=== PATIENT | male | born 1960 | race Caucasian/White ===

== ENCOUNTER 2021-10-18 16:55 | Outpatient (CLI) | payer SELFPAY ==
[2021-10-18 17:44] LABS: #Basophils 0.1 10x3/uL (0.0-0.2); #Monocytes 0.4 10x3/uL (0.0-1.1); #Neutrophils 6.6 10x3/uL (1.5-8.4); %Basophils 0.5 % (0.0-2.0); %Eosinophils 0.3 % (0.0-6.0); %Lymphocytes 25.6 % (18.0-47.0); %Monocytes 4.6 % (0.0-10.0); %Neutrophils 68.7 % (40.0-75.0); Hemoglobin 12.4 g/dL (13.5-17.5); Mean Corpuscular Hemoglobin 28.6 pg (27.0-33.0); Mean Corpuscular Volume 86.8 fl (81.2-95.1); Mean Platelet Volume 8.8 fl (7.4-10.4); Platelet Count 466 10x3/uL (150-450); RBC Distribution Width 13.9 % (11.5-14.5); Red Blood Cell (RBC) Count 4.33 10x6/uL (4.32-5.72); White Blood Cell (WBC) Count 9.6 10x3/uL (3.5-10.5)
[2021-10-18 17:53] LABS: Anion Gap 12 mmol/L (10-20); BUN (Urea Nitrogen) 16 mg/dL (8.4-25.7); Calc. Creatinine Clearance 0 mL/min (70-130); Calcium 9.5 mg/dL (7.8-10.44); Carbon Dioxide 29 mmol/L (23-31); Chloride 102 mmol/L (98-107); Estimated GFR 92; Glucose 104 mg/dL (80-115); Potassium 4.3 mmol/L (3.5-5.1); Sodium 139 mmol/L (136-145)
== END 2021-10-18 16:56 | disposition home or self-care (01) ==
LOC: LABBT 16:55
PROVIDERS: ATTEND Specialist
DX: Z01.818 Encounter for other preprocedural examination (principal); E11.9 Type 2 diabetes mellitus without complications; Z20.822 Contact with and (suspected) exposure to COVID-19
CPT/HCPCS: 80048; 85025; 87811; 93005; 93010

== ENCOUNTER 2021-10-18 17:15 | Inpatient (IN) | payer OTHER ==
[2021-10-19 10:23] VITALS: BMI 23.0
[2021-10-20] MEDS ORDERED: Vancomycin 1 GM/200 ML BAG ONE (10:27)
[2021-10-20] MEDS ORDERED: Acetaminophen 500 MG TAB ONE (10:27)
[2021-10-20] MEDS ORDERED: Ketorolac Tromethamine 30 MG/ML VIAL ONE (10:27)
[2021-10-20] MEDS ORDERED: Rocuronium Bromide 10 MG/ML (10ML VIAL) ONE (10:31)
[2021-10-20] MEDS ORDERED: PROPOFOL 200 MG/20 ML VIAL ONE (10:31)
[2021-10-20] MEDS ORDERED: Ondansetron PF 4 MG/2 ML Vial ONE (10:31)
[2021-10-20] MEDS ORDERED: Glycopyrrolate 0.2 MG/ML 5 ML SYRINGE ONE (10:31)
[2021-10-20] MEDS ORDERED: fentaNYL Citrate/PF 100 MCG/2 ML SYRINGE ONE ×2 (12:17→14:12)
[2021-10-20] MEDS ORDERED: Cefepime 2 GM in Sodium Chloride 0.9% 100 ML IVPB SCH (12:30)
[2021-10-20] MEDS ORDERED: Promethazine HCl 25 MG/ML VIAL IVPB PRN ×2 (13:35→13:50)
[2021-10-20] MEDS ORDERED: Promethazine HCl 25 MG/ML VIAL IM PRN ×3 (13:35→13:50)
[2021-10-20] MEDS ORDERED: Ondansetron HCl/PF 4 MG/2 ML Vial IVP PRN ×2 (13:35→13:50)
[2021-10-20] MEDS ORDERED: HYDROmorphone 0.5 MG/0.5 ML SYRINGE ONE ×2 (13:43→14:16)
[2021-10-20] MEDS ORDERED: Zolpidem Tartrate 5 MG TAB PO PRN (13:47)
[2021-10-20] MEDS ORDERED: Naloxone HCl 0.4 mg/ml Vial IV PRN (13:47)
[2021-10-20] MEDS ORDERED: fentaNYL Citrate/PF 2,000 MCG in Sodium Chloride 0.9% 60 ML IV PRN (13:47)
[2021-10-20] MEDS ORDERED: diphenhydrAMINE 50 MG/ML VIAL IVP PRN (13:47)
[2021-10-20] MEDS ORDERED: Ondansetron PF 4 MG/2 ML Vial IVP PRN (13:47)
[2021-10-20] MEDS ORDERED: diphenhydrAMINE 25 MG CAP PO PRN (13:47)
[2021-10-20] MEDS ORDERED: diphenhydrAMINE 50 MG/ML VIAL IM PRN (13:47)
[2021-10-20] MEDS ORDERED: HYDROmorphone 2 MG/ML VIAL SLOW IVP PRN (13:50)
[2021-10-20] MEDS ORDERED: Communication Order-Pharmacy FS SCH (14:00)
[2021-10-20] MEDS ORDERED: Dextrose 5% in Water 1,000 ML IV PRN (14:09)
[2021-10-20] MEDS ORDERED: Morphine 4 MG/ML VIAL SLOW IVP PRN (14:09)
[2021-10-20] MEDS ORDERED: HYDROcodone/Acetaminophen 10/325 mg Tablet PO PRN ×2 (14:09)
[2021-10-20] MEDS ORDERED: Ondansetron ODT 4 MG TAB PO PRN (14:09)
[2021-10-20] MEDS ORDERED: hydrALAZINE 20 MG/ML VIAL SLOW IVP PRN (14:09)
[2021-10-20] MEDS ORDERED: Morphine 2 MG/ML VIAL SLOW IVP PRN (14:09)
[2021-10-20] MEDS ORDERED: HumaLOG 300 UNITS/3 ML VIAL SC PRN (14:09)
[2021-10-20] MEDS ORDERED: Dextrose 50% Abboject 50 ML SYRINGE SLOW IVP PRN (14:09)
[2021-10-20] MEDS ORDERED: traMADol HCl 50 MG TAB PO PRN (14:09)
[2021-10-20] MEDS: Ketorolac Tromethamine 30 MG/ML VIAL IVP SCH (16:49)
[2021-10-20] MEDS: Sodium Chloride 0.45% 1,000 ML IV SCH (16:51)
[2021-10-20] MEDS ORDERED: Ciprofloxacin 500 MG TAB PO SCH (20:00)
[2021-10-20] MEDS: Enoxaparin Sodium 40 MG/0.4 ML SYRINGE SC SCH (20:50)
[2021-10-20] MEDS: NPH, Human Insulin Isophane 300 UNIT/3 ML VIAL SC SCH (22:34)
[2021-10-21] MEDS: Ketorolac Tromethamine 30 MG/ML VIAL IVP SCH ×5 (00:10→23:53)
[2021-10-21] MEDS: Sodium Chloride 0.45% 1,000 ML IV SCH ×3 (00:18→20:48)
[2021-10-21 05:43] LABS: #Eosinphils 0.1 thou/uL (0.0-0.7); #Lymphocytes 2.5 thou/uL (1.20-3.40); #Monocytes 0.7 thou/uL (0.11-0.59); #Neutrophils 7.1 thou/uL (1.40-6.50); %Basophils 0.4 % (0.0-1.0); %Eosinophils 0.8 % (0.0-10.0); %Lymphocytes 23.9 % (21.0-51.0); %Neutrophils 67.9 % (42.0-75.0); Mean Corpuscular HGB CONC 32.4 g/dL (32.0-36.0); Mean Corpuscular Hemoglobin 29.9 pg (27.0-31.0); Mean Corpuscular Volume 92.5 fL (78.0-98.0); Mean Platelet Volume 7.1 fL (7.4-10.4); Platelet Count 337 thou/uL (130-400); RBC Distribution Width 12.8 % (11.5-14.5); Red Blood Cell (RBC) Count 3.33 mill/uL (4.70-6.10); White Blood Cell (WBC) Count 10.4 thou/uL (4.8-10.8)
[2021-10-21 05:57] LABS: Hemoglobin A1c 7.8 % (4.0-6.0)
[2021-10-21 06:16] LABS: Anion Gap 12 mmol/L (10-20); BUN (Urea Nitrogen) 24 mg/dL (8.4-25.7); Calc. Creatinine Clearance 79 mL/min (70-130); Calcium 8.6 mg/dL (7.8-10.44); Carbon Dioxide 27 mmol/L (23-31); Chloride 101 mmol/L (98-107); Estimated GFR 88; Glucose 163 mg/dL (80-115); Potassium 4.5 mmol/L (3.5-5.1); Sodium 135 mmol/L (136-145)
[2021-10-21] MEDS: NPH, Human Insulin Isophane 300 UNIT/3 ML VIAL SC SCH ×2 (08:39→19:33)
[2021-10-21] MEDS: Aspirin 81 mg Enteric Coated Tablet PO SCH (08:39)
[2021-10-21] MEDS: Gabapentin 300 MG CAP PO SCH (20:47)
[2021-10-21] MEDS: Enoxaparin Sodium 40 MG/0.4 ML SYRINGE SC SCH (20:48)
[2021-10-22] MEDS: Sodium Chloride 0.45% 1,000 ML IV SCH (01:08)
[2021-10-22] MEDS: Ketorolac Tromethamine 30 MG/ML VIAL IVP SCH ×2 (05:15→12:20)
[2021-10-22] MEDS ORDERED: HYDROcodone/Acetaminophen 5/325 mg Tablet PO PRN (08:00)
[2021-10-22 08:02] VITALS: TEMP 98.2
[2021-10-22] MEDS ORDERED: Polyethylene Glycol 3350 17 GM Packet PO SCH (09:00)
[2021-10-22] MEDS: Aspirin 81 mg Enteric Coated Tablet PO SCH (09:41)
[2021-10-22] MEDS: Gabapentin 300 MG CAP PO SCH (09:41)
[2021-10-22] MEDS: NPH, Human Insulin Isophane 300 UNIT/3 ML VIAL SC SCH (09:42)
[2021-10-22 12:20] VITALS: BP 165/71
[2021-10-26] MEDS ORDERED: Etodolac 300 MG Capsule PO SCH (09:00)
== END 2021-10-22 15:26 | disposition home or self-care (01) | DRG 617 ==
LOC: SURG A 10-20 09:45
PROVIDERS: ADMIT Specialist; ATTEND Specialist
PROC: 0Y6J0Z1 Detachment at Left Lower Leg, High, Open Approach (ICD-10-PCS; principal; 2021-10-20)
DX: E11.69 Type 2 diabetes mellitus with other specified complication (principal); M86.8X6 Other osteomyelitis, lower leg; E11.621 Type 2 diabetes mellitus with foot ulcer; L97.529 Non-pressure chronic ulcer of other part of left foot with unspecified severity; Z20.822 Contact with and (suspected) exposure to COVID-19; I10 Essential (primary) hypertension; F17.210 Nicotine dependence, cigarettes, uncomplicated; E11.65 Type 2 diabetes mellitus with hyperglycemia; Z72.89 Other problems related to lifestyle; Z79.82 Long term (current) use of aspirin; Z71.6 Tobacco abuse counseling; Z71.41 Alcohol abuse counseling and surveillance of alcoholic; Z79.4 Long term (current) use of insulin
CPT/HCPCS: 36415; 36416; 80048; 83036; 85025; 88307; 88311; J1170; J1650; J1815; J1885; J2405; J2704; J2710; J3370